=== PATIENT | male | born 1935 | race Caucasian/White ===

== ENCOUNTER 2017-03-15 18:56 | Emergency (ER) | payer OTHER ==
[~2017-03-15] VITALS: Ht 193 cm; Wt 91.9 kg
[~2017-03-15 18:56] MED LIST: ALLOPURINOL300 MG PO; AMIODARONE HCL200 MG PO; AMIODARONE HCL400 MG PO; ASPIRIN EC325 MG PO; ASPIRIN325 MG PO; CALCITRIOL0.5 MCG PO; Cipro PO; FLORASTOR250 MG PO; FUROSEMIDE20 MG PO; Flagyl PO; GABAPENTIN300 MG PO; GLIMEPIRIDE1 MG PO; HYDROCODON-ACE1 EAC7 PO; HYDROCODON-ACE1 EAC8 PO; ISOSORBIDE DINI20 MG PO; LEVOFLOXACIN750 MG PO; LIVALO4 MG PO; LOPRESSOR25 MG PO; LOPRESSOR50 MG PO; LORAZEPAM1 MG PO; LORTAB 5-500 T1 EACH PO; LOVASTATIN; METFORMIN HCL500 MG PO; METOPROLOL SUCC25 MG PO; METOPROLOL TART50 MG PO; MIRALAX255 GM PO; NEURONTIN300 MG PO; NEURONTIN600 MG PO; NITROSTAT0.4 MG SL; PLAVIX75 MG PO; PREVACID 24HR15 MG PO; Plavix PO; TAMIFLU30 MG PO; ULORIC40 MG PO; VITAMIN C1000 MG PO; XARELTO15 MG PO; ZESTRIL2.5 MG PO; ZETIA10 MG PO; ZYLOPRIM150 MG PO; ZYRTEC-D1 TABLE1 PO; ZYRTEC10 M2 PO
[2017-03-15 19:51] LABS: EOSINOPHIL (%) 1.3 % (0-5); EOSINOPHIL COUNT 0.2 K/uL (0-0.3); HEMATOCRIT 36.6 % (38.0-50.0); IMMATURE GRANULOCYTE (%) 1.9 % (0.0-0.7); IMMATURE GRANULOCYTE COUNT 0.2 K/uL; INSTRUMENT ABS NEUTROPHIL CT 8.4 K/uL; MCH 29.4 PG (29.0-34.0); MEAN PLAT.VOLUME 9.5 uM^3 (9.0-12.4); MONOCYTE (%) 8.9 % (3-12); MONOCYTE COUNT 1.1 K/uL (0-0.8); NEUTROPHIL (%) 70.8 % (45-76); NEUTROPHIL COUNT 8.4 K/uL (1.8-6.4); RBC DIS.WIDTH-CV 15.2 % (11.8-14.6); RBC DIS.WIDTH-SD 51.8 % (39-53); RED BLOOD COUNT 3.98 M/uL (4.00-5.50); WHITE BLOOD COUNT 11.8 K/uL (4.1-10.2)
[2017-03-15 19:55] LABS: PLATELET COUNT 339 K/uL (156-360)
[2017-03-15 20:00] LABS: CHLORIDE 108 mEq/L (99-109); POTASSIUM 4.9 mEq/L (3.7-5.4); SODIUM 140 mEq/L (136-147)
[2017-03-15 20:02] LABS: GLUCOSE 104 mg/dL (70-99)
[2017-03-15 20:03] LABS: ANION GAP 8 MEQ/L (2-14)
[2017-03-15 20:04] LABS: TOTAL BILIRUBIN 0.5 mg/dL (0.0-1.0)
[2017-03-15 20:05] LABS: ALKALINE PHOSPHATASE 133 IU/L (3-129)
[2017-03-15 20:06] LABS: GFR ESTIMATE (CALCULATED) > 59 mL/min/ (58.99-99999)
[2017-03-15 20:07] LABS: UREA NITROGEN (BUN) 32 mg/dL (9-23)
[2017-03-15 20:09] LABS: LIPASE 9 U/L (1.0-51.0)
[2017-03-15 22:12] LABS: ADD MIUA? NO; BILIRUBIN NEGATIVE; BLOOD NEGATIVE; COLOR YELLOW ((YELLOW)); GLUCOSE (STRIP) NEGATIVE; KETONES NEGATIVE; LEUKOCYTES NEGATIVE; NITRITE NEGATIVE; PROTEIN (STRIP) NEGATIVE; SPECIFIC GRAVITY 1.034 (1.000-1.030)
[2017-03-15 23:02] VITALS: BP 161/80
== END 2017-03-15 23:04 | disposition home or self-care (01) ==
LOC: EME → EDBD 18:56 → EME 18:56
PROVIDERS: Emergency Medicine
DX: K59.00 Constipation, unspecified (principal); R10.84 Generalized abdominal pain; Z98.890 Other specified postprocedural states; R07.81 Pleurodynia; R35.0 Frequency of micturition; I71.4 Abdominal aortic aneurysm, without rupture; N28.1 Cyst of kidney, acquired; I10 Essential (primary) hypertension; I25.2 Old myocardial infarction; E78.5 Hyperlipidemia, unspecified; R73.03 Prediabetes; Z79.84 Long term (current) use of oral hypoglycemic drugs; Z85.51 Personal history of malignant neoplasm of bladder; Z95.5 Presence of coronary angioplasty implant and graft; Z79.02 Long term (current) use of antithrombotics/antiplatelets; Z79.82 Long term (current) use of aspirin; F17.200 Nicotine dependence, unspecified, uncomplicated
CPT/HCPCS: 74174; 80053; 81003; 83605; 83690; 85025; 99281; 99285; J7030

== ENCOUNTER 2017-04-15 11:47 | Emergency (ER) | payer OTHER ==
[~2017-04-15] VITALS: Ht 193 cm; Wt 93.6 kg
[2017-04-15 11:57] VITALS: BP 104/50
[2017-04-15 12:44] LABS: HEMATOCRIT 42.2 % (38.0-50.0); HEMOGLOBIN 12.9 G/DL (12.5-16.6); MCHC 30.6 G/DL (30.0-36.0); MCV 94.8 FL (86-99); PLATELET COUNT 226 K/uL (156-360); RBC DIS.WIDTH-CV 16.2 % (11.8-14.6); RBC DIS.WIDTH-SD 56.6 % (39-53); RED BLOOD COUNT 4.45 M/uL (4.00-5.50); WHITE BLOOD COUNT 9.1 K/uL (4.1-10.2)
[2017-04-15 12:52] LABS: CHLORIDE 107 mEq/L (99-109); POTASSIUM 5.7 mEq/L (3.7-5.4); SODIUM 142 mEq/L (136-147)
[2017-04-15 12:54] LABS: GLUCOSE 132 mg/dL (70-99)
[2017-04-15 12:58] LABS: CREATININE 1.5 mg/dL (0.6-1.3); GFR ESTIMATE (CALCULATED) 48 mL/min/ (58.99-99999)
[2017-04-15 12:59] LABS: UREA NITROGEN (BUN) 27 mg/dL (9-23)
[2017-04-15 13:04] LABS: TROP-I INTERPRETATION NEGATIVE; TROPONIN-I < 0.01 ng/mL (0.0-0.30)
== END 2017-04-15 14:09 | disposition left against medical advice (07) ==
LOC: EME 11:47
PROVIDERS: Nurse Practitioner Family
DX: S01.81XA Laceration without foreign body of other part of head, initial encounter (principal); Z53.21 Procedure and treatment not carried out due to patient leaving prior to being seen by health care provider
CPT/HCPCS: 70450; 80048; 84484; 85027; 99281